=== PATIENT | male | born 1995 | race Caucasian/White ===

== ENCOUNTER → 2017-02-07 | Outpatient (CLI) | payer OTHER ==
--- NOTE | 2017-02-07 09:27 | DIAGNOSTIC IMAGING REPORT ---
RIGHT SHOULDER MIN 2 VIEWS CLINICAL HISTORY: Right shoulder pain status post trauma COMPARISON: None. DISCUSSION: There is a right AC joint separation with elevation of the clavicle with respect to the acromion. No acute fractures or dislocations the proximal humerus are visualized. IMPRESSION: 1. No evidence of acute proximal right humeral fracture 2. Right AC joint separation Electronically signed by: Jeff Jimenez M.D. 02/07/2017 9:25 AM Dictated Date/Time: 02/07/2017 9:23 AM
== END | disposition home or self-care (01) ==
LOC: C.RDSM 16:43
PROVIDERS: ATTEND Physician Assistant
DX: M25.511 Pain in right shoulder (principal)

== ENCOUNTER → 2017-02-14 | Outpatient (CLI) | payer OTHER ==
--- NOTE | 2017-02-14 14:16 | DIAGNOSTIC IMAGING REPORT ---
RIGHT SHOULDER MIN 2 VIEWS CLINICAL HISTORY: Right AC joint separation COMPARISON: 02/07/2017 DISCUSSION: No acute fractures or dislocations of the proximal humerus are visualized. There is persistent elevation of the distal right clavicle with respect to the acromion. This consistent with a right AC joint separation. IMPRESSION: Right AC joint separation. Electronically signed by: Jeff Jimenez M.D. 02/14/2017 2:15 PM Dictated Date/Time: 02/14/2017 2:14 PM
== END | disposition home or self-care (01) ==
LOC: C.RDSM 13:55
PROVIDERS: ATTEND Physician Assistant
DX: S43.121A Dislocation of right acromioclavicular joint, 100%-200% displacement, initial encounter (principal); X58.XXXA Exposure to other specified factors, initial encounter